=== PATIENT | male | born 1965 | race Caucasian/White ===

== ENCOUNTER 2024-01-25 19:25 | Emergency (ER) | payer MEDICARE, SELFPAY ==
--- NOTE | 2024-01-25 19:30 | XRR_ITS ---
PROCEDURE INFORMATION: Exam: XR Chest Exam date and time: 01/25/2024 7:36 PM Age: 58 years old Clinical indication: Pain; Chest pressure; Additional info: Chest pain, left shoulder pain TECHNIQUE: Imaging protocol: Radiologic exam of the chest. Views: 1 view. COMPARISON: No relevant prior studies available. FINDINGS: Lungs: Lungs are clear bilaterally. Pleural spaces: No pleural effusion. No pneumothorax. Heart/Mediastinum: The cardiac silhouette and mediastinal contours are unremarkable. Bones/joints: Unremarkable for age. XR/XR chest 1V portable [id number] IMPRESSION: No acute cardiopulmonary process.
--- NOTE | 2024-01-25 19:31 | ECG_ITS ---
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 Measurements Intervals [place] Rate: 56 P: 58 UT: 152 QRS: 58 QRSD: 152 T: 36 QT: 418 QTc: 404 Interpretive Statements SINUS BRADYCARDIA RIGHT BUNDLE BRANCH BLOCK [120+ ms QRS DURATION, UPRIGHT V1, 40+ ms S IN I/aVL/V4/V5/V6] No previous ECG available for comparison Electronically Signed On 01-26-2024 18:07:36 CDT by Vaishali Garcia M.D. [id number] f
[2024-01-25 19:32] VITALS: BP 150/109; PULSE 63; RESP 15; O2SAT 94
[2024-01-25 19:48] LABS: Basophils # 0.1 10^3/uL (0.0-0.1); Basophils % 0.7 %; Eosinophils # 0.3 10^3/uL (0.0-0.8); Eosinophils % 2.6 %; Hematocrit 49.5 % (37-53); Lymphocytes # 3.2 10^3/uL (0.8-4.8); Lymphocytes % 31.6 %; Mean Corpuscular HGB Conc 33.7 g/dL (30-55); Mean Corpuscular Hemoglobin 30.5 pg (27-33); Mean Corpuscular Volume 90.5 fl (82-101); Monocytes # 1.1 10^3/uL (0.2-0.9); Monocytes % 10.4 %; Neutrophils # 5.49 10^3/uL (1.8-7.7); Neutrophils % 54.1 %; Nucleated Red Blood Cells % 0 %; Platelet Count 213 10^3/cmm (157-399); Red Blood Count 5.47 10^6/uL (3.85-5.65); Red Cell Distribution Width 12.8 % (12.1-15.1); White Blood Count 10.15 10^3/uL (3.29-11.43)
[2024-01-25 20:00] LABS: Troponin(5th) Baseline < 6 ng/L (0-15)
--- NOTE | 2024-01-25 20:02 | ED_ITS ---
HPI - Chest Pain 2 General: Chief Complaint: Chest Pain Stated Complaint: Left Shoulder Pain and Chest Pain Time Seen by Provider: 01/25/24 19:30 History of Present Illness: Patient presents with left-sided chest pain more of a left lateral left posterior chest wall pain. He said it radiates up and down his back sometimes goes into his left shoulder or up into his neck. Patient says certain movements of his left arm make this pain worse. Patient also reports he has chronic back pain. He had a recent blood pressure medication change but does not know the name of the medicine. Patient denies any diaphoresis, shortness of breath, nausea vomiting, coughs colds fevers chills Review of Systems 2 General: Reports: 10 or more systems reviewed and unremarkable except in HPI and below Physical Exam 2 Const: COMMON NORMALS: no acute distress, average body habitus, patient oriented x3, no limitations, healthy appearing, alert and well nourished HENMT: COMMON NORMALS: normocephalic, atraumatic, hearing grossly normal bilaterally, external ears normal, Normal external nose present, moist oral mucous membranes and oropharynx normal HEAD & SCALP: normocephalic and atraumatic NOSE: Normal external nose present EXTERNAL EAR: Yes external ears normal Neck/C-Spine: COMMON NORMALS: full ROM, no lymphadenopathy, supple, no meningeal signs, no JVD and Thyroid normal THYROID: Thyroid normal Chest: COMMONS NORMALS: normal inspection of the chest; negative for normal palpation of entire chest wall (Tenderness with palpation of left lateral and left posterior chest wall mus) Resp: COMMON NORMALS: normal respiratory effort, No retractions, No use of accessory muscles and clear to auscultation bilaterally AUSCULTATION: clear to auscultation bilaterally Cardio: COMMON NORMALS: no JVD, regular rate, regular rhythm, S1 normal heart sound present, S2 normal heart sound present, No gallops present (Cardio), No clicks present (Cardio), No murmurs present (Cardio) and No rub (Cardio) R ATE: regular rate RHYTHM: regular rhythm HEART SOUNDS: S1 normal heart sound present and S2 normal heart sound present GI: COMMON NORMALS: Normal to inspection, nondistended, normoactive bowel sounds present, Soft to palpation, non-tender, No hepatosplenomegaly present and no masses PALPATION: Yes Soft to palpation and Yes No hepatosplenomegaly present Neuro: COMMON NORMALS: patient oriented x3 SENSORIUM/ORIENTATION: Yes alert MENINGEAL SIGNS: Yes no meningeal signs Course 2 Vital Signs: Vital signs: Vital Signs Pulse Rate 54 L 01/25/24 21:00 Respiratory Rate 18 01/25/24 21:00 Blood Pressure 116/69 01/25/24 21:00 Pulse Oximetry 93 01/25/24 21:00 Oxygen Delivery Me thod Room Air 01/25/24 19:32 MDM - Chest Pain Medical Decision Making Patient was worked up in chest pain fashion with serial EKGs, serial lab work and chest x-ray, all of which were essentially unremarkable did not point to a cardiac cause for his chest pain it is thought to be more chest wall pain is reproducible with palpation especially in the posterior region. Patient was given Toradol here and I went back to reevaluate him he was sleeping soundly. Patient be discharged home. Differential Diagnosis Unlikely acute massive pulmonary embolism, acute respiratory failure, acute myocardial infarction, cardiac arrest or sudden cardiac Medical Records I reviewed the patient's medical records. Lab Data I reviewed the patient's lab results. 01/25/24 19:35 01/25/24 19:35 Radiology Impressions Chest X-Ray 01/25/24 19:30 IMPRESSION: No acute cardiopulmonary process. Laboratory Results WBC 10.15 10^3/uL (3.29-11.43) 01/25/24 19:35 RBC 5.47 10^6/uL (3.85-5.65) 01/25/24 19:35 Hgb 16.70 g/dL (11.27-16.99) 01/25/24 19:35 Hct 49.5 % (37-53) 01/25/24 19:35 MCV 90.5 fl (82-101) 01/25/24 19:35 MCH 30.5 pg (27-33) 01/25/24 19:35 MCHC 33.7 g/dL (30-55) 01/25/24 19:35 RDW 12.8 % (12.1-15.1) 01/25/24 19:35 Plt Count 213 10^3/cmm (157-399) 01/25/24 19:35 MPV 10.0 fL (7.4-10.4) 01/25/24 19:35 Neut % (Auto) 54.1 % 01/25/24 19:35 Lymph % (Auto) 31.6 % 01/25/24 19:35 Parke % (Auto) 10.4 % 01/25/24 19:35 Eos % (Auto) 2.6 % 01/25/24 19:35 Baso % (Auto) 0.7 % 01/25/24 19:35 Neut # (Auto) 5.49 10^3/uL (1.8-7.7) 01/25/24 19:35 Lymph # (Auto) 3.2 10^3/uL (0.8-4.8) 01/25/24 19:35 Parke # (Auto) 1.1 10^3/uL (0.2-0.9) H 01/25/24 19:35 Eos # (Auto) 0.3 10^3/uL (0.0-0.8) 01/25/24 19:35 Baso # (Auto) 0.1 10^3/uL (0.0-0.1) 01/25/24 19:35 Nucleated RBC % (auto) 0 % 01/25/24 19:35 Nucleated RBCs # 0.0 /100WBC 01/25/24 19:35 Sodium 140 mmol/L (136-145) 01/25/24 19:35 Potassium 3.8 mmol/L (3.5-5.1) 01/25/24 19:35 Chloride 102 mmol/L (98-107) 01/25/24 19:35 Carbon Dioxide 27 mmol/L (22-29) 01/25/24 19:35 Anion Gap 14.8 (5-19) 01/25/24 19:35 BUN 15 mg/dL (6-20) 01/25/24 19:35 Creatinine 0.9 mg/dL (0.7-1.2) 01/25/24 19:35 GFR Calculation 86.7 mL/min (90-130) L 01/25/24 19:35 Glucose 104 mg/dL (65-115) 01/25/24 19:35 Calculated Osmolality 291 mOsm/kg (285-295) 01/25/24 19:35 Calcium 9.0 mg/dL (8.5-10.5) 01/25/24 19:35 Total Bilirubin 0.4 mg/dL (0.15-1.2) 01/25/24 19:35 AST 16 U/L (0-40) 01/25/24 19:35 ALT 13 U/L (0-41) 01/25/24 19:35 Alkaline Phosphatase 107 U/L (40-130) 01/25/24 19:35 Troponin T Baseline < 6 ng/L (0-15) 01/25/24 19:35 Total Protein 7.8 g/dL (6.6-8.7) 01/25/24 19:35 Albumin 4.3 g/dL (3.5-5.2) 01/25/24 19:35 Globulin 3.5 g/dL (1.3-4.6) 01/25/24 19:35 All radiology interpretation(s) finalized by discharge Discharge Plan Discharge Patient Disposition: Home Clinical Impression: Acute chest wall pain Condition: Stable Prescriptions: New meloxicam 7.5 mg tablet 7.5 mg PO .Twice daily Qty: 14 0RF Discharge Orders: Discharge ED (Routine); Ordered 01/25/24 Ordered By: Vipul Mcneil Patient Instructions: Chest Pain - Chest Wall Activity Restrictions/Additional Instructions: Evaluation ER did not show any acute cardiac cause of your chest pain, it is felt to be more chest wall in nature. Please take your medicine as prescribed and follow-up with your family practitioner the next 7 days for further evaluation and treatment. If your pain changes or worsens please feel free to return to the ER. Thank you for choosing [facility] for your healthcare needs today. Please realize that you were seen in the emergency department and that we are providing you with an emergency medical screening exam and this may not be a complete and all exclusive of all testing and/or medical workup we may need to determine your element or severity of your illness. It is very important that you follow-up as instructed with your primary care provider or specialist for the additional evaluation and to discuss your medical treatment plan. You may return to the emergency department should you have concerns or if your condition changes or worsens in any way. Coding Level of Care Code ED Community Resource Officer for Sejal Ragsdale
[2024-01-25 20:05] LABS: Alanine Aminotransferase 13 U/L (0-41); Albumin Level 4.3 g/dL (3.5-5.2); Alkaline Phosphatase 107 U/L (40-130); Anion Gap 14.8 (5-19); Aspartate Amino Transferase 16 U/L (0-40); Blood Urea Nitrogen 15 mg/dL (6-20); Carbon Dioxide 27 mmol/L (22-29); Chloride 102 mmol/L (98-107); Globulin 3.5 g/dL (1.3-4.6); Glomerular Filtration Rate 86.7 mL/min (90-130); Glucose 104 mg/dL (65-115); Osmolality Calculated 291 mOsm/kg (285-295); Potassium 3.8 mmol/L (3.5-5.1); Sodium 140 mmol/L (136-145); Total Bilirubin 0.4 mg/dL (0.15-1.2); Total Protein 7.8 g/dL (6.6-8.7)
[2024-01-25] MEDS: ketorolac 60 mg/2 mL INJ IM (20:10)
[2024-01-25 20:30] VITALS: BP 135/84; PULSE 53; RESP 18; O2SAT 93
[2024-01-25 21:00] VITALS: BP 116/69; PULSE 54; RESP 18; O2SAT 93
--- NOTE | 2024-01-25 21:16 | ECG_ITS ---
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 Measurements Intervals [place] Rate: 48 P: 48 NM: 150 QRS: 58 QRSD: 154 T: 42 QT: 460 QTc: 411 Interpretive Statements SINUS BRADYCARDIA RIGHT BUNDLE BRANCH BLOCK [120+ ms QRS DURATION, UPRIGHT V1, 40+ ms S IN I/aVL/V4/V5/V6] No previous ECG available for comparison Electronically Signed On 01-26-2024 0:35:29 CDT by Vaishali Garcia M.D. [id number]
== END 2024-01-25 21:21 | disposition home or self-care (01) ==
PROVIDERS: Emergency Provider Emergency Medicine
DX: R07.89 Other chest pain (principal)
CPT/HCPCS: 71045; 80053; 84484; 85025; 93005; 99284; J1885